=== PATIENT | female | born 1940 | race Caucasian/White ===

== ENCOUNTER 2021-02-26 11:47 | Emergency (ER) | payer MEDICARE ==
[~2021-02-26] VITALS: Ht 154.9 cm; Wt 62.6 kg
--- NOTE | 2021-02-26 11:55 | NUR ---
[id number] C/O BODYACHES S/P GLF LAST NIGHT AFTER DINNER STATES UNABLE TO STAND UP. BG 250 PERINATAL COORDINATOR. PATIENT A/OX4, BREATHING EVEN AND UNLABORED, CHANGED INTO A GOWN, ATTACHED TO THE ALTERNATIVE EDUCATION TEACHER. DR. MONGE AT BEDSIDE FOR EVAL.
--- NOTE | 2021-02-26 12:05 | NUR ---
IV LINE ESTABLISHED, BLOOD DRAWN AND SENT TO LAB.
[2021-02-26 12:16] LABS: BASOPHILS # (AUTO) 0.1 /CMM (0.0-0.2); BASOPHILS % (AUTO) 0.4 % (0.0-2.0); EOSINOPHILS % (AUTO) 1.2 % (0.0-6.0); HEMATOCRIT 38 % (33-45); HEMOGLOBIN 12.3 g/dL (11.5-14.8); LYMPHOCYTES # (AUTO) 1.3 /CMM (0.8-4.8); LYMPHOCYTES % (AUTO) 8.1 % (20.0-44.0); MEAN CORPUSCULAR HGB CONC 32 g/dl (31.0-36.0); MEAN CORPUSCULAR VOLUME 92 fL (82-100); MONOCYTES # (AUTO) 1.1 /CMM (0.1-1.30); NEUTROPHILS # (AUTO) 13.1 /CMM (1.8-8.9); NEUTROPHILS % (AUTO) 83.3 % (43.0-81.0); PLATELET COUNT (AUTO) 317 /CMM (150-450); RED BLOOD CELL COUNT(AUTO) 4.13 MIL/uL (4.0-5.2); WHITE BLOOD COUNT (AUTO) 15.8 K/uL (4.3-11.0)
--- NOTE | 2021-02-26 12:21 | NUR ---
PT STS SHE CANNOT GIVE A URINE SAMPLE AT THIS TIME.
--- NOTE | 2021-02-26 12:23 | NUR ---
CASE MANAGEMENT CONSULTED.
[2021-02-26 12:25] LABS: CREATININE 0.9 mg/dL (0.6-1.3)
--- NOTE | 2021-02-26 12:29 | NUR ---
PATIENT IS ACCEPTED AT [facility] IF PATIENT DOESNT MEET THE CRITERIA FOR ADMISSION.
[2021-02-26] MEDS ORDERED: IV NS 0.9% 1,000 ML BAG IV ONE (12:30)
[2021-02-26] MEDS ORDERED: LORAZEPAM 0.5 MG TABLET PO ONE (13:30)
--- NOTE | 2021-02-26 13:30 | NUR ---
URINE SENT TO LAB.
[2021-02-26] MEDS ORDERED: LORAZEPAM 0.5 MG TABLET ONE (13:34)
--- NOTE | 2021-02-26 13:42 | NUR ---
FAMILY FRIEND AT BEDSIDE IN CONTACT WITH THE PATIENTS DAUGHTER.
[2021-02-26 13:47] LABS: BILIRUBIN,URINE Negative (NEGATIVE); COLOR,URINE YELLOW (YELLOW); LEUKOCYTE ESTERASE ,URINE Negative (NEGATIVE); NITRITE, URINE Negative (NEGATIVE); PH,URINE 5.5 (5.0-8.0); PROTEIN,URINE Negative (NEGATIVE); UGLUCOSE 100 MG/DL mg/dL (NEGATIVE); UROBILINOGEN,URINE 0.2 EU/dL (0.2)
--- NOTE | 2021-02-26 13:47 | NUR ---
LAB CALLED RE: COVID NEGATIVE RESULT.
[2021-02-26] MEDS ORDERED: LOSA50TA39 PO (13:57)
[2021-02-26] MEDS ORDERED: SITA1TAB6 PO (13:57)
[2021-02-26] MEDS ORDERED: MEMA10TA PO (13:57)
[2021-02-26] MEDS ORDERED: CHOL100062 PO (13:57)
[2021-02-26] MEDS ORDERED: LOVA40TA2 PO (13:57)
[2021-02-26 13:58] LABS: BACTERIA,URINE Few /HPF (None Seen); RBC,URINE 0-2 /HPF (0-2); SQUAMOUS EPITHELIAL CELL,UR Rare /HPF (None Seen); WBC,URINE 0-2 /HPF (0-3)
[2021-02-26 13:59] LABS: URINE AMORPHOUS URATE Few /HPF (None Seen)
--- NOTE | 2021-02-26 13:59 | NUR ---
REPORT GIVEN TO CHERRY JEAN HEALTH EDUCATION ASSISTANT AT [facility].
--- NOTE | 2021-02-26 14:04 | NUR ---
[facility] eta 1304
[2021-02-26] MEDS ORDERED: CLONIDINE HCL 0.1 MG TABLET ONE (14:49)
--- NOTE | 2021-02-26 14:53 | NUR ---
INFORMED DR. PETERSON PATIENT'S BP IS 184/87 HR 91
[2021-02-26] MEDS ORDERED: CLONIDINE HCL 0.1 MG TABLET PO ONE (15:00)
[2021-02-26 15:24] VITALS: BP 170/68
--- NOTE | 2021-02-26 15:24 | NUR ---
PATIENT'S BP IS GRADUALLY IMPROVING. DENIES ANY PAIN AT THIS TIME. REPORT GIVEN TO PIE CRIMPING MACHINE OPERATOR. PAPERWORKS PROVIDED. FAMILY FRIEND AT BEDSIDE. PATIENT'S PCP MADE AWARE PER PATIENT'S REQUEST. IV removed. Catheter intact and site benign. Pressure and 4x4 applied to site. No bleeding noted.Patient discharged to [facility] in stable condition. Written and verbal after care instructions given. Patient verbalizes understanding of instruction.
== END 2021-02-26 15:26 ==
LOC: ER 11:57
DX: R26.9 Unspecified abnormalities of gait and mobility (principal); E86.0 Dehydration; E11.65 Type 2 diabetes mellitus with hyperglycemia; M51.26 Other intervertebral disc displacement, lumbar region; M25.78 Osteophyte, vertebrae; Z20.822 Contact with and (suspected) exposure to COVID-19; M48.061 Spinal stenosis, lumbar region without neurogenic claudication; M48.04 Spinal stenosis, thoracic region; I11.9 Hypertensive heart disease without heart failure; D72.829 Elevated white blood cell count, unspecified
CPT/HCPCS: 36415; 71045; 72128; 72131; 80048; 81001; 85025; 87426; 93005; 96360; 99285; J7030; C9803